=== PATIENT | female | born 2000 | race Caucasian/White ===

== ENCOUNTER 2021-09-22 13:14 | Emergency (ER) | payer OTHER ==
[~2021-09-22] VITALS: Ht 167.6 cm; Wt 84.3 kg
[2021-09-22 14:55] LABS: BASO # 0.1 10^3/uL (0.0-0.2); BASO % 0.5 % (0.0-1.0); EOS # 0.4 10^3/uL (0.0-0.5); HEMATOCRIT 40.3 % (36.0-47.0); HEMOGLOBIN 13.5 g/dl (12.0-15.5); LYMPH # 2.4 10^3/uL (1.5-5.0); LYMPH % 20.7 % (24.0-44.0); MEAN CORPUSCULAR HEMOGLOBIN 29.5 pg (27.0-33.0); MEAN CORPUSCULAR HGB CONC 33.5 g/dl (32.0-36.5); MONO % 8.1 % (2.0-8.0); NEUTROPHILS # 7.9 10^3/uL (1.5-8.5); NEUTROPHILS % 67.4 % (36.0-66.0); PLATELET COUNT, AUTOMATED 320 10^3/uL (150-450); RED BLOOD COUNT 4.58 10^6/uL (4.00-5.40); WHITE BLOOD COUNT 11.7 10^3/uL (4.0-10.0)
[2021-09-22 15:18] LABS: ALBUMIN 4.1 GM/DL (3.2-5.2); BILIRUBIN,DIRECT 0.1 MG/DL (0.0-0.2); BILIRUBIN,TOTAL 0.4 MG/DL (0.2-1.0); TOTAL PROTEIN 7.8 GM/DL (6.4-8.2)
[2021-09-22 17:48] VITALS: BP 111/64
[2021-09-22] MEDS ORDERED: MIRA3350 PO (17:57)
[2021-09-22] MEDS ORDERED: IBUP-1022 PO (17:57)
[2021-09-22 19:18] LABS: GC DNA AMPLIFICATION NEGATIVE (NEGATIVE)
== END 2021-09-22 18:03 | disposition home or self-care (01) ==
LOC: M ED 13:14
DX: R10.2 Pelvic and perineal pain (principal); Z88.0 Allergy status to penicillin

== ENCOUNTER → 2023-09-30 | Outpatient (REF) ==
[~2023-09-30] MED LIST: IBUP-1022 PO; MIRA3350 PO; SERT50TA29 PO; TRAZ-252 PO; VITMTA PO; ZOLO100T PO
== END ==
LOC: M PLAIMG 11:38
PROVIDERS: ATTEND Nurse Practitioner Family
DX: M54.9 Dorsalgia, unspecified (principal)